=== PATIENT | female | born 1985 | race Caucasian/White ===

== ENCOUNTER 2020-03-23 04:39 | Emergency (ER) | payer BC ==
[2020-03-23 04:49] VITALS: TEMP 98.3; BMI 23.1
[2020-03-23] MEDS ORDERED: morphine CARPU-JECT 2 MG/1 ML DISP.SYRIN IVPUSH ONE ×2 (04:56→06:25)
[2020-03-23] MEDS ORDERED: KETOROLAC TROMETHAMINE 30 MG/1 ML VIAL IVPUSH ONE (04:56)
[2020-03-23] MEDS ORDERED: SODIUM CHLORIDE 1,000 ML IV ONE (04:56)
--- NOTE | 2020-03-23 04:57 | PDOC ---
History of Present Illness - General Chief Complaint: Nausea/Vomiting Stated Complaint: VOMITING Time Seen by Provider: 03/23/20 04:50 History Source: Patient Exam Limitations: No Limitations - History of Present Illness Initial Comments: 03/23/20 04:58 This is a 34-year-old female who comes in complaining of abdominal pain and vomiting x24 hours. Patient said pain began after she ate some pizza. Patient denies history of similar pain in the past. Patient denies history of gallstones or gallbladder problems. Allergies: as per nursing notes Past Medical History: none Social history: Lives with family. No smoking. No alcohol. No illicit drugs. Surgical history: None General: No fevers or chills, no weakness, no weight loss HEENT: No change in vision. No sore throat,. No ear pain CardioVascular: no chest discomfort. No shortness of breath Respiratory:No cough, or wheezing. Gastrointestinal: no nausea, vomiting, diarrhea or constipation, No rectal bleeding Genitourinary: No dysuria, hematuria, or frequency Musculoskeletal: No joint or muscle pain or swelling Neurologic: No headache, vertigo, dizziness or loss of consciousness Psychiatric: nor depression Skin: No rashes or easy bruising Endocrine: no increased thirst or abnormal weight change Allergic: no skin or latex allergy All other systems reviewed and normal Exam: General: Well-nourished well-developed individual, no acute distress HEENT: Throat: Normal, tonsils normal, no erythema or exudate Neck: Supple, no meningeal signs, no lymphadenopathy Eyes::Pupils equal reactive and round, extraocular motion intact Chest: Nontender to palpation Cardiac: S1-S2 normal, regular rate and rhythm, no murmurs rubs or gallops Respiratory: Lungs clear to auscultation bilateral Abdomen: Soft, nondistended, normal bowel sounds, there is tenderness on palpation in the right upper quadrant and epigastric area. There is no guarding or rebound Extremities: Warm, dry, no cyanosis, clubbing, or edema Skin: No rashes Neuro: Alert and oriented x3, CN II - XII intact, nonfocal exam with normal strength, normal sensation, normal reflexes, normal gait, Psych: Normal mood and affect Assessment and plan: This is a 34-year-old female who comes in complaining of pain in her right upper quadrant area after eating pizza. Patient has had multiple episodes of vomiting secondary to the pain. Work-up initiated including EKG, CBC, comp, lipase, lactic acid and a ultrasound of her gallbladder. Patient given IV fluids, Zofran, Toradol, morphine 03/23/20 06:27 Reevaluation. Patient feels much better pain is resolved and she is able to tolerate p.o.'s. Patient's work-up was unremarkable with the exception of a mildly elevated white count of 12.0. Patient had an ultrasound done that was negative for any acute pathology. Patient had a EKG that showed a sinus arrhythmia otherwise was normal. Patient will be discharged with prescriptions for hyoscyamine and Zofran was sent to patient's pharmacy. Patient will follow-up with her primary care doctor if needed Past History - Medical History Allergies/Adverse Reactions: Allergies Allergy/AdvReac Type Severity Reaction Status Date / Time No Known Allergies Allergy Verified 03/23/20 04:40 Home Medications: Ambulatory Orders Hyoscyamine Odt [Levsin Odt -] 0.125 mg PO DAILY #7 tab.rapdis 03/23/20 Ondansetron [Zofran *Odt*] 4 mg SL TID #12 od.tablet 03/23/20 COPD: No Other medical history: DENIES - Psycho-Social/Smoking History Smoking History: Current some day smoker Have you smoked in the past 12 months: Yes Information on smoking cessation initiated: Yes - Substance Abuse Hx (Audit-C & DAST Scrn) How often the patient has a drink containing alcohol: 2-3 times / week Number of drinks the patient has on a typical day: 1 or 2 How often the patient has six or more drinks on one occasion: Never Score: In Men: 4 or > Positive; In Women: 3 or > Positive: 3 Screen Result (Pos requires Nsg. Audit-10AR): Positive In the last yr the pt used illegal drug/Rx for NonMed reason: No Score: Yes response is considered Positive: 0 Screen Result (Positive result requires Nsg. DAST-10): Negative *Physical Exam - Vital Signs Last Vital Signs Temp Pulse Resp BP Pulse Ox 98.3 F 80 16 133/94 100 03/23/20 04:42 03/23/20 04:42 03/23/20 04:42 03/23/20 04:42 03/23/20 04:42 ED Treatment Course - LABORATORY CBC & Chemistry Diagram: 03/23/20 05:20 03/23/20 05:20 Discharge - Discharge Information Problems reviewed: Yes Clinical Impression/Diagnosis: Abdominal pain Qualifiers: Abdominal location: upper abdomen, unspecified Qualified Code(s): R10.10 - Upper abdominal pain, unspecified Vomiting Qualifiers: Vomiting type: unspecified Vomiting Intractability: non-intractable Nausea presence: with nausea Qualified Code(s): R11.2 - Nausea with vomiting, unspecified Condition: Stable - Admission No - Additional Discharge Information Prescriptions: Hyoscyamine Odt [Levsin Odt -] 0.125 mg PO DAILY #7 tab.rapdis Ondansetron [Zofran *Odt*] 4 mg SL TID #12 od.tablet - Follow up/Referral - Patient Discharge Instructions Patient Printed Discharge Instructions: DI for Vomiting -- Adult Additional Instructions: I have sent a couple of prescriptions to your pharmacy 1 is for nausea that you can take and let it dissolve under your tongue as often as 1 every 8 hours. The other one is for the abdominal cramps/pain take as often as once to twice a day as needed. Return to the emergency department immediately with ANY new, persistent or worsening symptoms. Continue any medications as previously prescribed by your physician. You should follow up with your primary doctor as soon as possible regarding today's emergency department visit. . Please make sure your doctor reviews the results of your emergency evaluation. Thank you for coming to the Emergency Department today for your care. It was a pleasure to see you today. Please note that your evaluation is INCOMPLETE until you follow-up with your doctor. - Post Discharge Activity
[2020-03-23] MEDS ORDERED: ONDANSETRON 4 MG/2 ML VIAL IVPB ONE (05:02)
[2020-03-23] MEDS ORDERED: ONDANSETRON 4 MG/2 ML VIAL ONE (05:09)
[2020-03-23] MEDS ORDERED: morphine SULFATE 4 MG/ML VIAL ONE ×2 (05:09→06:06)
[2020-03-23] MEDS ORDERED: KETOROLAC TROMETHAMINE 30 MG/1 ML VIAL ONE (05:09)
[2020-03-23 05:42] LABS: BASO % 0.4 % (0-2.0); HEMOGLOBIN 12.3 GM/dL (10.7-15.3); LYMPH % 4.5 % (8-40); MCH 25.2 pg (25.7-33.7); MCHC 32.3 g/dl (32.0-36.0); MEAN CELL VOLUME 77.9 fl (80-96); MONO % 7.8 % (3.8-10.2); NEUT % 87.3 % (42.8-82.8); PLATELET COUNT 338 K/MM3 (134-434); RBC 4.88 M/mm3 (3.60-5.2); RDW 16.7 % (11.6-15.6); WHITE BLOOD COUNT 12.6 K/mm3 (4.0-10.0)
[2020-03-23 06:07] LABS: ALBUMIN 4.7 g/dl (3.4-5.0); ALK PHOS 49 U/L (45-117); ANION GAP 14 MMOL/L (8-16); BILIRUBIN,TOTAL 1.5 mg/dL (0.2-1); BLOOD UREA NITROGEN 16.5 mg/dL (7-18); CALCIUM 9.5 mg/dL (8.5-10.1); CHLORIDE 102 mmol/L (98-107); CO2 20 mmol/L (21-32); CREATININE 0.9 mg/dL (0.55-1.3); GLUCOSE,RANDOM 121 mg/dL (74-106); LIPASE 130 U/L (73-393); POTASSIUM 3.4 mmol/L (3.5-5.1); SGOT/AST 18 U/L (15-37); SGPT/ALT 25 U/L (13-61); SODIUM 136 mmol/L (136-145)
[2020-03-23 06:15] VITALS: BP 113/77; PULSE 54
--- NOTE | 2020-03-23 10:13 | EKG ---
Test Reason : Blood Pressure : / mmHG Vent. Rate : 061 BPM Atrial Rate : 061 BPM P-R Int : 124 ms QRS Dur : 088 ms QT Int : 472 ms P-R-T Axes : 052 047 025 degrees QTc Int : 475 ms SINUS RHYTHM WITH MARKED SINUS ARRHYTHMIA OTHERWISE NORMAL ECG NO PREVIOUS ECGS AVAILABLE Confirmed by Александр King MD ([id number]) on 03/23/2020 10:13:23 AM Referred By: LUCILA GRACE Confirmed By:Александр King MD
== END 2020-03-23 06:46 | disposition home or self-care (01) ==
LOC: FER 04:39
DX: R10.10 Upper abdominal pain, unspecified (principal); R11.2 Nausea with vomiting, unspecified
CPT/HCPCS: 36415; 76705-TC; 80053; 82550; 82553; 83605; 83690; 84484; 85025; 93005; 99285-25

== ENCOUNTER 2020-03-24 07:32 | Emergency (ER) | payer BC ==
--- NOTE | 2020-03-24 07:35 | PDOC ---
History of Present Illness - General Chief Complaint: Pain, Acute Stated Complaint: N/V/ABD PAIN Time Seen by Provider: 03/24/20 07:35 - History of Present Illness Initial Comments: 03/24/20 08:14 Chief complaint: Abdominal pain HPI: Diffuse mid abdominal pain, nausea, vomiting beginning yesterday. Seen here in ER, abdominal exam was without significant abnormalities. White blood count was 12.6, CO2 20. Otherwise CBC and chemistries were without significant abnormalities as well. Abdominal ultrasound was normal. Patient responded to symptomatic treatment and according to the record was discharged pain-free. She states that within a few hours the pain nausea and vomiting recurred, despite using prescribed medications, including Zofran and hyoscyamine. Review of systems: No fever/chills, headache, sore throat, URI symptoms, cough, chest pain, shortness of breath, hematemesis, melena, bloody stool, abnormal vaginal bleeding or discharge. She is menstruating now. No missed menses. No use of control. No urinary tract symptoms including dysuria frequency urgency hesitancy or hematuria. No diarrhea or constipation, with normal bowel movement yesterday. No history of melena. Past medical history: Denies serious medical or surgical problems in the past, takes no regular medication. Has had no abdominal or pelvic disease or surgery. Social history: Visiting her family from [place], has been in the area for 1 week, admits social alcohol, social drugs. Denies tobacco. Family history: Reviewed and noncontributory including early coronary artery disease, GI disease, MANAGER MBA disease, diabetes or other metabolic diseases, cancer Physical exam: Alert and oriented well-developed well-nourished mild to moderate distress due to abdominal pain. Cooperative Afebrile, vital signs normal No pallor or icterus. PERRLA, fundi benign, ENT clear Neck supple without bruit mass or nodes Lungs clear with full breath sounds bilaterally. CV S1-S2 normal without murmur rub or gallop pulses full and symmetric no JVD or edema no bruits regular rate. No tachycardia Abdomen nondistended. Bowel sounds normal. Soft without mass or tenderness. Despite deep palpation, there was no discomfort elicited. No CVAT. Extremities no CCE Skin clear, no rash, adequate turgor and mucous membranes Neurological intact Impression: Presentation is consistent with acute gastroenteritis. There is also the possibility that marijuana or other drug use is responsible. There is no abdominal tenderness on exam suggestive of serious intra-abdominal disease or peritoneal irritation. Recreational drugs may be playing a role. Urinalysis/hCG was not obtained yesterday Plan: Urinalysis, PGU, symptomatic treatment and further evaluation with repeat abdominal exam and additional treatment depending on results and response to therapy. 03/24/20 18:03 Past History - Medical History Allergies/Adverse Reactions: Allergies Allergy/AdvReac Type Severity Reaction Status Date / Time No Known Allergies Allergy Verified 03/24/20 07:33 Home Medications: Ambulatory Orders Hyoscyamine Odt [Levsin Odt -] 0.125 mg PO DAILY #7 tab.rapdis 03/23/20 Ondansetron [Zofran *Odt*] 4 mg SL TID #12 od.tablet 03/23/20 Acetaminophen W/ Codeine #3 [Tylenol # 3 -] 1 - 2 tab PO Q6H PRN #15 tablet MDD 6 03/24/20 COPD: No - Psycho-Social/Smoking History Smoking History: Current some day smoker Have you smoked in the past 12 months: Yes 'Breaking Loose' booklet given: 03/23/20 ED Treatment Course - LABORATORY CBC & Chemistry Diagram: 03/24/20 09:31 03/24/20 09:30 Medical Decision Making - Medical Decision Making 03/24/20 18:04 Laboratory evaluation shows a normal white blood count. Remainder of the CBC is normal as well Chemistries show slightly depressed CO2 but otherwise no significant abnormalities. Urinalysis shows ketones. There is no sign of infection. There is blood, but the patient is menstruating. As noted, the abdominal ultrasound performed yesterday was negative CT of the abdomen pelvis today with contrast showed a small amount of fluid around the liver and gallbladder, but no sign of acute cholecystitis or other acute liver abnormality. The patient appears completely comfortable, although she states that her pain is "still the same". She is asking for stronger pain medication, Abdominal exam remains completely benign She is discharged with a small supply of Tylenol No. 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 Erickson. Fully ambulatory and in no apparent distress at discharge to follow-up as directed Discharge - Discharge Information Problems reviewed: Yes Clinical Impression/Diagnosis: Abdominal pain Qualifiers: Abdominal location: generalized Qualified Code(s): R10.84 - Generalized abdominal pain Condition: Improved Disposition: HOME - Admission No - Additional Discharge Information Prescriptions: Acetaminophen W/ Codeine #3 [Tylenol # 3 -] 1 - 2 tab PO Q6H PRN #15 tablet MDD 6 PRN Reason: Severe Pain - Follow up/Referral Referrals: Zackary Erickson MD [Staff Physician] - 1 week - Patient Discharge Instructions Patient Printed Discharge Instructions: DI for Abdominal Pain-Adult Additional Instructions: Lab work, ultrasound, and CT scan did not identify a reason for your pain. Physical exam is also nonspecific. Most likely cause is a virus infection, sometimes referred to his viral gastroenteritis, which can take several days to a week to resolve. There is no specific treatment. Nausea medication and pain medication as prescribed may be helpful. If the pain persists it is necessary to see a gastroenterology specialist for further evaluation and treatment, since no other obvious cause can be identified with routine evaluation. Remain on clear liquid diet until symptoms resolve. - Post Discharge Activity
[2020-03-24 07:36] VITALS: BMI 22.6
[2020-03-24] MEDS ORDERED: FAMOTIDINE 20 MG/50 ML IVPB 20 MG/50 ML MG IVPB ONE ×2 (07:59→08:11)
[2020-03-24] MEDS ORDERED: ACETAMINOPHEN 1000 MG/100 ML VIAL (NON FORMULARY) IVPB ONE (07:59)
[2020-03-24] MEDS ORDERED: ONDANSETRON 4 MG/2 ML VIAL IVPB ONE ×2 (07:59→14:20)
[2020-03-24] MEDS ORDERED: SODIUM CHLORIDE 1,000 ML IV STA ×2 (08:00→09:47)
[2020-03-24] MEDS ORDERED: ACETAMINOPHEN INJECTION 100 ML IVPB ONE (08:11)
[2020-03-24] MEDS ORDERED: ONDANSETRON 4 MG/2 ML VIAL ONE ×2 (08:11→12:13)
[2020-03-24 08:25] LABS: HCG,QUALITATIVE URINE NEGATIVE
[2020-03-24 08:57] LABS: EPITHELIAL CELLS MODERATE /hpf
[2020-03-24] MEDS ORDERED: hydrOXYzine PAMOATE 25 MG CAPSULE (FP) PO ONE ×2 (09:30→09:44)
[2020-03-24 09:39] LABS: BASO % 0.2 % (0-2.0); EOS % 0.6 % (0-4.5); HEMATOCRIT 32.8 % (32.4-45.2); HEMOGLOBIN 10.8 GM/dl (10.7-15.3); LYMPH % 8.1 % (8-40); MCH 25.5 pg (25.7-33.7); MCHC 32.9 g/dl (32.0-36.0); MEAN CELL VOLUME 77.6 fl (80-96); MEAN PLT VOLUME 8.1 fl (7.5-11.1); MONO % 6.7 % (3.8-10.2); NEUT % 84.4 % (42.8-82.8); PLATELET COUNT 311 K/MM3 (134-434); RBC 4.22 M/mm3 (3.60-5.2); RDW 15.7 % (11.6-15.6); WHITE BLOOD COUNT 8.6 K/mm3 (4.0-10.8)
[2020-03-24 09:49] LABS: ALBUMIN 4.3 g/dl (3.4-5.0); BILIRUBIN,TOTAL 1.3 mg/dl (0.2-1); CALCIUM 8.4 mg/dl (8.5-10); CREATININE 0.6 mg/dl (0.55-1.3); POTASSIUM 3.5 mmol/L (3.5-5.1); TOT PROT 6.7 g/dl (6.4-8.2)
[2020-03-24] MEDS ORDERED: KETOROLAC TROMETHAMINE 30 MG/1 ML VIAL ONE (15:56)
[2020-03-24] MEDS ORDERED: KETOROLAC TROMETHAMINE 30 MG/1 ML VIAL IVPUSH ONE (16:19)
[2020-03-24 16:36] VITALS: BP 129/89; PULSE 51; TEMP 99.9
== END 2020-03-24 17:14 | disposition home or self-care (01) ==
LOC: FER 07:32
PROC: 3E033GC Introduction of Other Therapeutic Substance into Peripheral Vein, Percutaneous Approach (ICD-10-PCS; principal; 2020-03-24)
PROC: 3E0337Z Introduction of Electrolytic and Water Balance Substance into Peripheral Vein, Percutaneous Approach (ICD-10-PCS; principal; 2020-03-24)
DX: R10.84 Generalized abdominal pain (principal)
CPT/HCPCS: 36415; 74177-TC; 80053; 81003; 81015; 84703; 85025; 87086; 99285-25; J0131